=== PATIENT | female | born 1945 | race Caucasian/White ===

== ENCOUNTER 2022-02-22 09:51 | Outpatient (REF) | payer MEDICARE, MEDICAID, SELFPAY | END 2022-02-22 09:52 | disposition home or self-care (01) | LOC: HO.SH 09:51 | PROVIDERS: Visit Provider Hospitalist | DX: H90.A22 Sensorineural hearing loss, unilateral, left ear, with restricted hearing on the contralateral side (principal) | CPT/HCPCS: 92557; 92567 ==

== ENCOUNTER 2022-05-17 09:40 | Outpatient (REF) | payer MEDICARE, MEDICAID, SELFPAY ==
--- NOTE | 2022-05-17 11:27 | MHC.AU.MED ---
Medical Clearance for Hearing Instrumentation Date: 05/17/22 Patient Name: Jackie Sawyer Date of : 1945 Primary Care Provider: Hamilton Ward MD We have seen your patient on 05/17/22 and have determined that they are a candidate for amplification (See accompanying report). Specifically, they would benefit from: Hearing aid use in both ears There is a statute that addresses Medical Evaluation Requirements prior to fitting a patient with a hearing aid. According to [place] statute 265 CMR:6.03(1), (a) General. Except as provided in 265 CMR 6.03(1)(b), a instructional designer shall not sell a hearing aid unless the prospective user has presented to the instructional designer a written statement signed by a licensed physician that states that the patient's hearing loss has been medically evaluated and the patient may be considered a candidate for a hearing aid. The medical evaluation must have taken place within the preceding six months. Please note: Due to the [place] Statute referenced above, we cannot accept a signature other than that of a licensed physician. MIXER TENDER and PA signatures cannot be accepted. I am in agreement with the above recommendation. There is no medical contraindication for hearing instrumentation. Physician Signature Date Physician Name (Printed)
--- NOTE | 2022-05-17 11:59 | MHC.AU.HA1 ---
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 Today, she described the hearing aids as in-the-ear devices from [facility]. She still has the hearing aids; however, they are reportedly broken and she did not bring them to this appointment. Jackie reported that she was a consistent hearing aid user and noticed significant benefit from them. Discussed realistic expectations in regards to her speech discrimination ability. Jackie is hopeful new hearing aids will make daily communication a little easier for her. Hearing Aid Prescription: Based on the individual?s shared listening needs, communication environments, dexterity, desire for connectivity, and personal preferences, the following prescription for amplification has been made: Right ear: Make, Model, Color: Phonak Audeo P70-R Color: Sand Beige Battery Size: Rechargeable Caramel Candy Maker Helper/Slim Tube: 1P Type of Earmold/Dome/CShell/SlimTip: Acrylic c-shell Left ear:Left ear prescription to be same as Right Hearing Aid above: Make, Model, Color: Phonak Audeo P70-R Color: Sand Beige Battery Size: Rechargeable Caramel Candy Maker Helper/Slim Tube: 1P Type of Earmold/Dome/CShell/SlimTip: Acrylic c-shell Plan of Care: Patient wishes to purchase hearing aids as prescribed Action Taken/Action Needed: Medical Clearance to be requested from PCP/ENT. Hearing Instrument Fitting to be scheduled when materials arrive Primary Diagnosis: H90.3 Bilateral Sensorineural Hearing Loss Signature: Provider: Morgan Gaffney, [facility]
== END 2022-05-17 09:41 | disposition home or self-care (01) ==
LOC: HO.SH 09:40
PROVIDERS: Visit Provider Hospitalist
DX: Z01.118 Encounter for examination of ears and hearing with other abnormal findings (principal); Z46.1 Encounter for fitting and adjustment of hearing aid; H90.3 Sensorineural hearing loss, bilateral
CPT/HCPCS: 92557; 92567; 92591; V5275

== ENCOUNTER 2022-06-19 10:07 | Outpatient (REF) | payer MEDICARE, MEDICAID, SELFPAY ==
--- NOTE | 2022-06-19 11:14 | MHC.AU.HA2 ---
Hearing Instrument Fitting- Adult- Binaural Date of Visit: 06/19/22 Hearing Instruments Dispensed: Right Ear: Make, Model, Color, Serial Number: Lucia Barlowo P70-R SN: [id number]: Estelita Bekatie Retail Agent Repair Warranty: 08/29/2025 Retail Agent Loss and Damage Warranty: 08/29/2025 [facility] Service Plan: 06/19/2023 Battery Size: Rechargeable Channel Specialist/Slim Tube: 1P Earmold/Dome/CShell/SlimTip: Acrylic 4.0 c-shell SN: [id number] [place]: 08/29/2022 Type of Wax Guard: CeruStop Left Ear: Deep, Model, Color, Serial Number: Lucia Barlowo P70-R SN: [id number] Color: Estelita Beige Retail Agent Repair Warranty: 08/29/2025 Retail Agent Loss and Damage Warranty: 08/29/2025 [facility] Service Plan: 06/19/2023 Battery Size: Rechargeable Channel Specialist/Slim Tube: 1P Earmold/Dome/CShell/SlimTip: Acrylic 4.0 c-shell SN: [id number] [place]: 08/29/2022 Type of Wax Guard: CeruStop Accessories/Assistive Technology: Phonak Blister Packaging Machine Operator Ease no EPS Summary of Fitting: Performed feedback government contracts manager and real ear measurements. Decreased to 80% gain level at Jackie's request due to perceived loudness. Reviewed care, use, and rechargeability including manually turning on/off, volume control use, and changing wax guards. Practiced insertion and removal. Jackie did well overall as she has had hearing aids in the past; however, she has not worn hearing aids in several years. Discussed importance of consistent use. Jackie is motivated to use and acclimate to her new hearing aids and excited to hear again. Recommendations: A hearing instrument follow-up was scheduled. Diagnosis Code(s): Primary Diagnosis: H90.3 Bilateral Sensorineural Hearing Loss Signature: Provider: Morgan Gaffney, [facility]
== END 2022-06-19 10:08 | disposition home or self-care (01) ==
LOC: HO.HAP 10:07
PROVIDERS: Visit Provider Family Medicine
DX: Z46.1 Encounter for fitting and adjustment of hearing aid (principal); H90.3 Sensorineural hearing loss, bilateral
CPT/HCPCS: V5011; V5020; V5160; V5261; V5264

== ENCOUNTER 2022-07-10 10:19 | Outpatient (REF) | payer MEDICARE, MEDICAID, SELFPAY ==
--- NOTE | 2022-07-10 10:57 | MHC.AU.HA3 ---
Hearing Instrument Follow-Up- Binaural Date of Visit: 07/10/22 Right Ear: Make, Model, Color, Serial Number: Lucia Naylor L70-R SN: [id number] Color: Sand Beige Candy Cutter Hand Repair Warranty: 08/29/2025 Candy Cutter Hand Loss and Damage Warranty: 08/29/2025 [facility] Service Plan: 06/19/2023 Battery Size: Rechargeable Trimmer Meat/Slim Tube: 1P Earmold/Dome/CShell/SlimTip:Acrylic 4.0 c-shell SN: [id number] [place]: 08/29/2022 Type of Wax Guard: CeruStop Dispensed By: [facility] Date of Fittin06/19/2022 Left Ear: Deep, Model, Color, Serial Number: Lucia Naylor L70-R SN: [id number] Color: Sand Beige Candy Cutter Hand Repair Warranty: 08/29/2025 Candy Cutter Hand Loss and Damage Warranty: 08/29/2025 [facility] Service Plan: 06/19/2023 Battery Size: Rechargeable Trimmer Meat/Slim Tube: 1P Earmold/Dome/CShell/SlimTip: Acrylic 4.0 c-shell SN: [id number] [place]: 08/29/2022 Type of Wax Guard: CeruStop Dispensed By: [facility] Date of Fittin06/19/2022 Follow-Up Summary: Jackie reported that she is doing great with her hearing aids. Data logging showed about 14 hours of use per day. She notices benefit in all listening environments and has no concerns at this time. Nixono'ed how to change wax guard again as left wax guard partially blocked. Changed both wax guards in office. Right battery showed 6% charged (left at 87%) in [employer] software. Jackie reported that she charged both last night. Confirmed hearing aid is charging on Jackie's webmethods consultant. Jackie will call if right hearing aid has issues with charging. Recommendations: Hearing instrument maintenance in 6 months, or sooner if needed. Diagnosis Code(s): Primary Diagnosis: H90.3 Bilateral Sensorineural Hearing Loss Signature: Provider: Morgan Gaffney, [facility]
== END 2022-07-10 10:20 | disposition home or self-care (01) ==
LOC: HO.HAP 10:19
PROVIDERS: Visit Provider Family Medicine
DX: Z13.89 Encounter for screening for other disorder (principal)

== ENCOUNTER 2023-03-02 08:25 | Outpatient (REF) | payer MEDICARE, MEDICAID, SELFPAY | END 2023-03-02 08:26 | disposition home or self-care (01) | LOC: HO.HAP 08:25 | PROVIDERS: Visit Provider Hospitalist | DX: Z13.89 Encounter for screening for other disorder (principal) ==

== ENCOUNTER 2023-03-06 11:05 | Outpatient (REF) | payer MEDICARE, MEDICAID, SELFPAY | END 2023-03-06 11:06 | disposition home or self-care (01) | LOC: HO.HAP 11:05 | PROVIDERS: Visit Provider Internal Medicine | DX: Z13.89 Encounter for screening for other disorder (principal) ==

== ENCOUNTER 2023-03-06 11:18 | Outpatient (REF) | payer SELFPAY | END 2023-03-06 11:19 | disposition home or self-care (01) | LOC: HO.HAP 11:18 | PROVIDERS: Visit Provider Internal Medicine | DX: H90.3 Sensorineural hearing loss, bilateral (principal); Z46.1 Encounter for fitting and adjustment of hearing aid | CPT/HCPCS: V5267 ==